=== PATIENT | female | born 1940 | race Caucasian/White ===

== ENCOUNTER 2018-01-28 16:26 | Emergency (ER) | payer MEDICARE, OTHER ==
[2018-01-28] MEDS ORDERED: TYLENOL 325 MG (17:11)
[2018-01-28] MEDS: TYLENOL 325 MG PO (17:11)
== END 2018-01-28 17:50 | disposition home or self-care (01) ==
LOC: ED 16:26
CPT/HCPCS: 73630

== ENCOUNTER 2024-08-03 14:29 | Emergency (ER) | payer MEDICARE ==
[2024-08-03 14:48] VITALS: RESP 20; TEMP 97.6
[2024-08-03] MEDS ORDERED: TYLENOL EXTRA STRENGTH 500 MG ONE (15:06)
[2024-08-03] MEDS: TYLENOL EXTRA STRENGTH 500 MG PO STA (15:08)
--- NOTE | 2024-08-03 16:40 | XRAY ---
Indication: Frontal head injury following fall. Multiple contiguous axial images obtained through the head without contrast. Comparison: September 28, 2015 There is now age-appropriate global atrophy and mild periventricular degenerative micro-ischemia bilaterally. No acute intracranial hemorrhage, abnormal extra-axial fluid collection, or mass effect. Fourth ventricle is midline without hydrocephalus. Bony calvarium intact. Visualized paranasal sinuses and mastoid air cells are clear. Impression: Nonacute senile brain.
--- NOTE | 2024-08-03 16:42 | XRAY ---
Indication: Frontal head injury following fall. Multiple contiguous axial images obtained through the facial bones. Sagittal and coronal reformatted images obtained. Comparison: None A few bilateral dental amalgams produces beam artifact. Osseous structures demineralized. No acute fracture or suspicious bony lesions. Orbits including roof, vidal, and floors intact. Paranasal sinuses and nasal passages are clear. Mild nasal septal deviation to the right. Visualized noncontrasted soft tissues are unremarkable. CT head and CT cervical spine reported separately. Impression: Negative CT facial bones. Incidental osteopenia and nasal septal deviation.
--- NOTE | 2024-08-03 16:44 | XRAY ---
Indication: Frontal head injury following fall. Multiple contiguous axial images obtained through the cervical spine. Sagittal and coronal reformatted images obtained. Comparison: None Osseous structures demineralized. Axial images negative for acute fracture, suspicious bony lesions, or spinal canal stenosis. Minimal/mild C3-C7 degenerative endplate spurring. Mild multilevel bilateral degenerative facet hypertrophy. Sagittal and coronal reformatted images demonstrates normal alignment. C3-C7 disc space loss. 3 mm anterolisthesis C7 on T1. No acute compression fracture or jumped facet. Normal appearing craniocervical junction. Visualized noncontrasted soft tissues demonstrates mild bilateral carotid calcifications and incompletely visualized left pacemaker leads. Lung apices clear. CT head and CT facial bones reported separately. Impression: 1. Negative acute fracture. 2. Chronic findings including osteopenia, multilevel degenerative spondylosis, minimal grade 1 C7 anterolisthesis, and bilateral carotid calcifications.
--- NOTE | 2024-08-03 16:50 | XRAY ---
Indication: Pain following fall. Comparison: None 3 view right knee demonstrates osteopenia, intact total knee arthroplasty, and moderate scattered vascular calcifications. No other bony, articular, or soft tissue abnormalities.
--- NOTE | 2024-08-03 16:50 | XRAY ---
Indication: Pain following fall. Comparison: None 3 view left hand demonstrates osteopenia, mild degenerative changes all IP joints, and mild/moderate 1st metacarpal multangular scaphoid degenerative changes. No other bony, articular, or soft tissue abnormalities.
[2024-08-03 17:32] VITALS: BP 147/77; PULSE 58
--- NOTE | 2024-08-03 17:33 | ERPHSYRPT ---
- History of Present Illness Time Seen by Provider: 08/03/24 14:32 Source: patient, family Exam Limitations: no limitations Patient Subjective Stated Complaint: Pt states "I tripped over the dog and hit my face and head. My left hand hurts, my right knee hurts, my upper lip and nose hurts and I have this spot above my left eye that is bruised and hurts." Triage Nursing Assessment: Pt presented alert and oriented X 3, skin pwd. Pt has bruising and swelling noted to left forehead, tenderness noted to left palm, right knee. Slight swelling noted to upper lip and nose. Physician History: 84 years old female on Xarelto tripped over her dog and fell face forward hitting the wooden floor. This happened prior to arrival without any loss of consciousness. Patient reports dull aching pain in the forehead, upper lip and left hand/right knee. Denies any chest pain palpitations or shortness of breath. Denies any neck pain. Denies feeling dizzy or lightheaded/chest pain/palpitations or shortness of breath before or after the fall. Patient has minimal swelling forehead and bruising of upper lip with minimal tenderness. No nasal bridge tenderness. No cervical spine tenderness. Minimal tenderness in the left hand in the thenar eminence area without deformity and also tenderness right knee with minimal to no swelling and intact range of motion. She is offered pain medication but does not want anything except Tylenol which is given. Feeling better on reevaluation. Has no skin break. I have obtained CT head cervical spine and facial bones which are negative for any acute trauma findings. X-rays left hand and right knee are negative as well. I believe patient has contusion. Recommended taking Tylenol, intermittent ice application and outpatient follow-up. Discussed signs symptoms of worsening needing return to ER which he seems understanding. It was a clear mechanical fall, do not think she needs any other workup and is stable for discharge. Allergies/Adverse Reactions: codeine Allergy (Verified 01/28/18 16:43) iodine Allergy (Verified 01/28/18 16:43) shellfish derived Allergy (Verified 01/28/18 16:43) Sulfa (Sulfonamide Antibiotics) Allergy (Verified 01/28/18 16:43) Home Medications: Antiox.mv No.10/Omeg3s/Lut/Manuel [I-Caps with Lutein-[place] 3 Sfg] 1 each PO DAILY 05/10/15 [History] Lorazepam 0.5 mg [Ativan 0.5 MG] 0.5 mg PO HS 05/10/15 [History] Metoprolol Succinate 50 mg [Toprol Xl 50 MG] 25 mg PO DAILY 05/10/15 [History] Rivaroxaban [Xarelto] 20 mg DAILY 01/28/18 [History] Rosuvastatin Calcium [Crestor] 35 mg TID 01/28/18 [History] Hx Tetanus, Diphtheria Vaccination/Date Given: No Hx Influenza Vaccination/Date Given: Yes Hx Pneumococcal Vaccination/Date Given: Yes Immunizations Up to Date: No Travel Risk - International Travel Have you traveled outside of the country in past 3 weeks: No - Emerging Infectious Disease Are you exhibiting symptoms associated with any current EIDs: No - Review of Systems Constitutional: No Symptoms Eyes: No Symptoms Ears, Nose, & Throat: Mouth Pain Respiratory: No Symptoms Cardiac: No Symptoms Abdominal/Gastrointestinal: No Symptoms Genitourinary Symptoms: No Symptoms Musculoskeletal: Arthralgias, Fall, Injury, Joint Pain Skin: No Symptoms Neurological: Headache Psychological: No Symptoms Hematologic/Lymphatic: Easy Bleeding - Past Medical History Pertinent Past Medical History: Yes Neurological History: No Pertinent History Cardiac History: Arrhythmia, High Cholesterol, Hypertension Respiratory History: No Pertinent History Endocrine Medical History: No Pertinent History Musculoskeletal History: Fractures, Osteoarthritis GI Medical History: Gallbladder Disease Other Medical History: HX FX RIGHT ELBOW REQUIRING REPLACEMENT 2016. - Past Surgical History Past Surgical History: Yes Gastrointestinal: Cholecystectomy Musculoskeletal: Joint Replacement Female Surgical History: Hysterectomy Other Surgical History: BLADDER LIFT, RIGHT HIP REPLACEMENT, RIGHT KNEE REPLACEMENT - Social History Smoking Status: Never smoker Exposure to second hand smoke: No Drug Use: none Patient Lives Alone: No - Social Determinants of Health Will the patient participate in the screening: Declined to provide - Nursing Vital Signs Nursing Vital Signs: Initial Vital Signs Temperature 97.6 F 08/03/24 14:41 Pulse Rate 64 08/03/24 14:41 Respiratory Rate 20 08/03/24 14:41 Blood Pressure 199/92 08/03/24 14:41 O2 Sat by Pulse Oximetry 99 08/03/24 14:41 Pain Scale Pain Intensity 4 - Shakira Coma Score Best Eye Response ([place]): (4) open spontaneously Best Verbal Response ([place]): (5) oriented Best Motor Response ([place]): (6) obeys commands Shakira Total: 15 - Physical Exam General Appearance: no apparent distress Head Injury: contusions (Minimal tenderness forehead), swelling, tenderness Eye Exam: PERRL/EOMI, eyes nml inspection ENT Exam: airway nml, No evidence of ENT injury, No dental injury Neck Exam: supple, trachea midline, full range of motion, normal alignment Respiratory/Chest Exam: normal breath sounds, respiratory distress, No chest tenderness Cardiovascular Exam: normal heart sounds, regular rate/rhythm Gastrointestinal Exam: soft, No tenderness Back Exam: normal inspection Extremity Exam: tenderness (Minimal tenderness left hand and right knee) Neurologic Exam: alert, oriented x 3, cooperative, gold cutter II-XII nml as tested Skin Exam: normal color SpO2 Interpretation: normal SpO2: 97 O2 Delivery: Room Air Ordered Tests: Active Orders 24 hr Category Date Time Status CERVICAL SPINE WO CONTRAST [CT] Stat Exams 08/03/24 14:53 Completed FACIAL BONES WO CONTRAST [CT] Stat Exams 08/03/24 14:53 Completed HAND (MINIMUM 3 VIEWS) Stat Exams 08/03/24 14:53 Completed HEAD WITHOUT CONTRAST [CT] Stat Exams 08/03/24 14:53 Completed KNEE (3 VIEWS) Stat Exams 08/03/24 14:53 Completed Medication Summary Discontinued Medications Generic Name Dose Route Start Last Admin Trade Name Lashonda PRN Reason Stop Dose Admin Acetaminophen 1,000 mg 08/03/24 15:01 08/03/24 15:08 Acetaminophen 500 Mg Tablet PO 08/03/24 15:02 1,000 mg STAT STA Administration Acetaminophen Confirm 08/03/24 15:06 Acetaminophen 500 Mg Tablet Administered 08/03/24 15:07 Dose 1,000 mg .ROUTE .STEldarion-MED ONE - Progress Progress: improved Progress Note: 08/03/24 17:32 84 years old female on Xarelto tripped over her dog and fell face forward hitting the wooden floor. This happened prior to arrival without any loss of consciousness. Patient reports dull aching pain in the forehead, upper lip and left hand/right knee. Denies any chest pain palpitations or shortness of breath. Denies any neck pain. Denies feeling dizzy or lightheaded/chest pain/palpitations or shortness of breath before or after the fall. Patient has minimal swelling forehead and bruising of upper lip with minimal tenderness. No nasal bridge tenderness. No cervical spine tenderness. Minimal tenderness in the left hand in the thenar eminence area without deformity and also tenderness right knee with minimal to no swelling and intact range of motion. She is offered pain medication but does not want anything except Tylenol which is given. Feeling better on reevaluation. Has no skin break. I have obtained CT head cervical spine and facial bones which are negative for any acute trauma findings. X-rays left hand and right knee are negative as well. I believe patient has contusion. Recommended taking Tylenol, intermittent ice application and outpatient follow-up. Discussed signs symptoms of worsening needing return to ER which he seems understanding. It was a clear mechanical fall, do not think she needs any other workup and is stable for discharge. Counseled pt/family regarding: diagnosis, need for follow-up, rad results Medical Desision Making - Independent Historian Additional History obtained from: Family - Diagnostic Testing Diagnostic test were ordered, analyzed, and reviewed by me: Yes Radiological Interpretation: Reviewed by me - Departure Departure Disposition: Home Clinical Impression: Forehead contusion, Ground-level fall, Knee contusion Condition: Stable Critical Care Time: No Referrals: KATHY OLMEDO DO [Primary Care Provider] - Follow up/PCP as directed Instructions: Preventing falls in adults, Contusion (DC), Head injury observation in adults Additional Instructions: Take Tylenol as needed. Intermittent ice application. Follow head injury instructions and return to ER for any worsening like intractable headache, visual disturbance, numbness tingling focal weakness, intractable neck pain, in tractable vomiting etc.
[2024-08-03 17:34] VITALS: O2SAT 97
== END 2024-08-03 17:44 | disposition home or self-care (01) ==
LOC: ED 14:29
DX: S00.83XA Contusion of other part of head, initial encounter (principal); S80.01XA Contusion of right knee, initial encounter; R51.9 Headache, unspecified; M79.642 Pain in left hand; W01.198A Fall on same level from slipping, tripping and stumbling with subsequent striking against other object, initial encounter; Z79.01 Long term (current) use of anticoagulants; Z79.899 Other long term (current) drug therapy
CPT/HCPCS: 70450; 70486; 72125; 73130; 73562; 99284; A9270-GY